=== PATIENT | female | born 1960 | race Caucasian/White ===

== ENCOUNTER 2018-03-20 05:30 | Day surgery (SDC) | payer OTHER ==
[~2018-03-20 05:30] MED LIST: CALTRATE 600+D1 EAC1 PO; LOSARTAN-HCTZ1 EACH PO; OMEPRAZOLE20 MG PO; ZOCOR PO; [UNRECOGNIZED DRUG - OTHER] PO
[2018-03-20] MEDS ORDERED: PERCOCET 5-3251 EACH PO (08:57)
== END 2018-03-20 11:35 | disposition home or self-care (01) ==
LOC: CIR.AMB 05:30 → EDSTATUS 08:15 → SURH 08:15 → CIR.AMB 08:15
DX: D34 Benign neoplasm of thyroid gland (principal); E04.1 Nontoxic single thyroid nodule; D36.0 Benign neoplasm of lymph nodes